=== PATIENT | male | born 1980 | race Hispanic/Latino ===

== ENCOUNTER 2017-07-08 23:04 | Emergency (ER) | payer OTHER ==
[2017-07-08] MEDS ORDERED: ZOFRAN ODT ONE (23:20)
[2017-07-08] MEDS ORDERED: ZOFRAN ODT PO ONE (23:29)
[2017-07-09 00:12] LABS: Basophils % (Auto) 0.4 % (0.0-1.8); Hematocrit 45.6 % (35.5-45.6); Mean Corpuscular HGB Conc 35 % (32-34); Mean Corpuscular Hemoglobin 31 pg (28-32); Mean Corpuscular Volume 88 fl (84-94); Platelet Count 272 K/mm3 (140-440); Red Blood Count 5.16 M/mm3 (3.65-5.03); Red Cell Distribution Width 12.6 % (13.2-15.2)
[2017-07-09 00:32] LABS: Anion Gap 24 mmol/L; BUN/Creatinine Ratio 24; Blood Urea Nitrogen 19 mg/dL (9-20); Calcium 10.1 mg/dL (8.4-10.2); Carbon Dioxide 21 mmol/L (22-30); Chloride 100.9 mmol/L (98-107); Glucose 157 mg/dL (75-100); Potassium 4.2 mmol/L (3.6-5.0); Sodium 142 mmol/L (137-145)
--- NOTE | 2017-07-09 02:15 | Emergency Department Report ---
ED N/V/D HPI - General Chief complaint: Nausea/Vomiting/Diarrhea Stated complaint: VOMITING Time Seen by Provider: 07/09/17 01:56 Source: patient Mode of arrival: Ambulatory Limitations: No Limitations - History of Present Illness Initial comments: 37-year-old male past medical history smoker, gerd presents with complaint of 2 days of intermittent nausea. Patient's is awake alert and oriented 3 somewhat nauseous on clinical exam. States he has been able to tolerate fluids but has some difficulty tolerating solids. Denies fever or chills denies recent travel. Denies eating anything out of the ordinary. States that he had abdominal pain earlier today was has since resolved but is still experiencing nausea. Denies any rash denies any dysuria. MD complaint: nausea, vomiting Onset/Timin -: days(s) Description of Vomiting: watery Associated Abdominal Pain: Yes Location: [place] Severity: mild Quality: aching Consistency: now resolved Worsens with: eating Associated Symptoms: denies other symptoms - Related Data Previous Rx's Medication Instructions Recorded Last Taken Type Bismuth Subsalicylate 15 ml PO QID PRN #1 bottle 07/09/17 Unknown Rx [Pepto-Bismol] Famotidine [Pepcid] 20 mg PO BID PRN #30 tablet 07/09/17 Unknown Rx Ondansetron [Zofran Odt] 4 mg PO Q8H PRN #12 tab.rapdis 07/09/17 Unknown Rx Allergies Allergy/AdvReac Type Severity Reaction Status Date / Time No Known Allergies Allergy Verified 07/08/17 23:22 ED Review of Systems ROS: Stated complaint: VOMITING Other details as noted in HPI Constitutional: denies: chills, fever Eyes: denies: eye pain, eye discharge, vision change ENT: denies: ear pain, throat pain Respiratory: denies: cough, shortness of breath, wheezing Cardiovascular: denies: chest pain, palpitations Endocrine: no symptoms reported Gastrointestinal: abdominal pain, nausea. denies: diarrhea Genitourinary: denies: urgency, dysuria Musculoskeletal: denies: back pain, joint swelling, arthralgia Skin: denies: rash, lesions Neurological: denies: headache, weakness, paresthesias Psychiatric: denies: anxiety, depression Hematological/Lymphatic: denies: easy bleeding, easy bruising ED Past Medical Hx - Past Medical History Previous Medical History?: No - Surgical History Past Surgical History?: No - Social History Smoking Status: Current Every Day Smoker Substance Use Type: None - Medications Home Medications: Home Medications Medication Instructions Recorded Confirmed Last Taken Type Bismuth Subsalicylate 15 ml PO QID PRN #1 bottle 07/09/17 Unknown Rx [Pepto-Bismol] Famotidine [Pepcid] 20 mg PO BID PRN #30 tablet 07/09/17 Unknown Rx Ondansetron [Zofran Odt] 4 mg PO Q8H PRN #12 tab.rapdis 07/09/17 Unknown Rx ED Physical Exam - General Limitations: No Limitations General appearance: alert, in no apparent distress - Head Head exam: Present: atraumatic, normocephalic - Eye Eye exam: Present: normal appearance, PERRL, EOMI - ENT ENT exam: Present: mucous membranes moist - Neck Neck exam: Present: normal inspection - Respiratory Respiratory exam: Present: normal lung sounds bilaterally. Absent: respiratory distress - Cardiovascular Cardiovascular Exam: Present: regular rate, normal rhythm. Absent: systolic murmur, diastolic murmur, rubs, gallop - GI/Abdominal GI/Abdominal exam: Present: soft (abdomen soft to palpation on clinical exam), normal bowel sounds - Rectal Rectal exam: Present: deferred - Extremities Exam Extremities exam: Present: normal inspection - Back Exam Back exam: Present: normal inspection - Neurological Exam Neurological exam: Present: alert, oriented X3, CN II-XII intact, normal gait - Psychiatric Psychiatric exam: Present: normal affect, normal mood - Skin Skin exam: Present: warm, dry, intact, normal color. Absent: rash ED Course Vital Signs 07/08/17 07/09/17 23:21 04:23 Temperature 98.4 F 98.7 F Pulse Rate 68 77 Respiratory 18 16 Rate Blood Pressure 129/82 Blood Pressure 114/77 [Left] O2 Sat by Pulse 98 100 Oximetry ED Medical Decision Making - Lab Data Result diagrams: 07/08/17 23:39 07/08/17 23:39 - Medical Decision Making A/P: Nausea and vomiting 1-CT scan unremarkable, results discussed with Dr. Glasgow before discharge 2-lactic acid is significantly improved with rehydration. Lipase WNL 3-urinalysis unremarkable, patient is now tolerating by mouth fluids without difficulty and is no longer nauseous, abdominal pain that spontaneously resolved 4-patient discharged, vital signs normal. Advised patient to return to the ED if he experiences fevers chills, persistent nausea and vomiting or inability to tolerate by mouth fluids or food. Patient stated he understood my instructions. Critical care attestation.: If time is entered above; I have spent that time in minutes in the direct care of this critically ill patient, excluding procedure time. ED Disposition Clinical Impression: Nausea & vomiting Qualifiers: Vomiting type: unspecified Vomiting Intractability: non-intractable Qualified Code(s): R11.2 - Nausea with vomiting, unspecified Disposition: TO HOME OR SELFCARE Is pt being admited?: No Does the pt Need Aspirin: No Condition: Stable Instructions: Abdominal Pain (ED), Acute Nausea and Vomiting (ED) Prescriptions: Bismuth Subsalicylate [Pepto-Bismol] 15 ml PO QID PRN #1 bottle PRN Reason: Indigestion Famotidine [Pepcid] 20 mg PO BID PRN #30 tablet PRN Reason: Indigestion Ondansetron [Zofran Odt] 4 mg PO Q8H PRN #12 tab.rapdis PRN Reason: Nausea Referrals: [facility] [Provider Group] - 3-5 Days [facility] [Outside] - 3-5 Days Forms: Work/School Release Form(ED) Time of Disposition: 07:04
[2017-07-09] MEDS ORDERED: REGLAN IV ONE (02:37)
[2017-07-09] MEDS ORDERED: NACL 0.9% 1000 ML 1,000 ML IV ONE ×2 (02:37→04:09)
[2017-07-09] MEDS ORDERED: PEPCID IV ONE ×2 (02:49→02:53)
[2017-07-09] MEDS ORDERED: NACL ONE (02:55)
[2017-07-09] MEDS ORDERED: ZOFRAN IV ONE (03:10)
[2017-07-09] MEDS ORDERED: ZOFRAN ONE (03:12)
[2017-07-09 03:33] LABS: Alanine Aminotransferase 71 units/L (7-56); Albumin 4.7 g/dL (3.9-5); Albumin/Globulin Ratio 1.3 %; Alkaline Phosphatase 108 units/L (35-129); Amylase 59 units/L (27-131); Lipase 30 units/L (13-60); Total Protein 8.2 g/dL (6.3-8.2)
[2017-07-09 03:38] LABS: Bilirubin,Direct < 0.2 mg/dL (0-0.2); Bilirubin,Indirect 0.3 mg/dL
--- NOTE | 2017-07-09 04:03 | Cat Scan Report ---
FINAL REPORT EXAM: CT ABDOMEN PELVIS W CON HISTORY: abdominal pain worsening ? pancreatitis COMPARISON: None available. TECHNIQUE: Contiguous axial images were obtained. Additional sagittal and coronal reformatted images were obtained. Administration of IV contrast given per institution protocol. Images submitted for interpretation. 100 cc Omnipaque [id number]. FINDINGS: Mild subsegmental atelectasis at the lung bases. No calcified gallstones or biliary dilatation. Mild diffuse fatty infiltration of the liver. Spleen and pancreas are unremarkable. There is homogeneous enhancement the pancreas. No peripancreatic stranding or fluid. No adrenal mass. No solid renal lesion or hydronephrosis. There is subcentimeter low-attenuation renal lesions bilaterally. These are too small to accurately characterize by CT, but may reflects cysts. Aorta and IVC are normal in caliber. Urinary bladder and prostate gland are grossly unremarkable. No free fluid or lymphadenopathy. Large and small bowel loops are normal in caliber. Mild diverticulosis of left colon. No diverticulitis. The appendix is partially gas-filled and normal in caliber. No inflammatory changes of the appendix. Portion of the sigmoid colon is decompressed. This limits evaluation wall thickening. No adjacent fat stranding or fluid to suggest active inflammation of the decompressed bowel. Bony pelvis and lumbar spine are grossly intact. Mild degenerative changes of the lumbar spine. There is narrowing of the celiac origin which appears to relate to prominent median arcuate ligament. Major branches of the aorta remain patent. IMPRESSION: No focal inflammatory changes of the abdomen and pelvis. Specifically, no evidence of acute appendicitis by CT.
[2017-07-09 04:24] LABS: Bilirubin,Urine NEG (Negative); Blood,Urine SM (Negative); Ketones,Urine TR mg/dL (Negative); Leukocyte Esterase,Urine NEG (Negative); Mucus,Urine 3+ /HPF; Nitrite,Urine NEG (Negative); Protein,Urine <15 mg/dL mg/dL (Negative); Urobilinogen,Urine < 2.0 mg/dL (<2.0)
[2017-07-09 07:08] VITALS: BP 112/77
== END 2017-07-09 07:36 | disposition home or self-care (01) ==
LOC: ED 23:04
DX: R11.2 Nausea with vomiting, unspecified (principal); F17.200 Nicotine dependence, unspecified, uncomplicated
CPT/HCPCS: 36415; 74177; 80048; 80074; 81001; 82140; 82150; 83690; 85025; 87040; 96361; 96374; 96375; 99284; J2405; J2765; J7030; Q9967; Q0162